=== PATIENT | male | born 1985 | race Caucasian/White ===

== ENCOUNTER 2024-12-19 20:06 | Emergency (ER) | payer BC, SELFPAY ==
--- NOTE | 2024-12-19 20:45 | ED.GENMED ---
History of Present Illness
General
Chief Complaint: Musculo-Skeletal Complaint
Time Seen by Provider: 12/19/24 20:16
History of Present Illness
History of Present Illness:
39-year-old male presents to the emergency department for evaluation of a right ring finger injury. States he went to urgent care and had x-rays showing a PIP dislocation and thus was sent to the ED for evaluation
Review of Systems
Review of Systems
Allergies reviewed?: Yes
All Other Systems: ROS reviewed and negative except as documented in HPI and ROS
Phy Exam
Physical Exam
Physical Exam:
GEN: Well appearing, NAD, WDWN
HEENT: Oral mucosa moist, no scleral icterus
Cardiac: Regular rate
Lung: No respiratory distress, no tachypnea
MSK: Swelling and deformity of the right ring finger PIP joint subjective of dorsal dislocation
Skin: Good color, no pallor or jaundice, no rashes
Neuro: AO x3, moves all extremities freely
Psych: Calm, cooperative
Course
Orders/Labs/Results
Orders:
Orders
12/19/24 20:33
CR Finger(s)/thumb Min 2 Vw Rt Urgent
Comment:
Reason For Exam: R 4th finger post reduction
Vital Signs
Initial and Last Documented VS:
Initial Vital Signs
Temp Pulse Resp Pulse Ox
98.7 F 76 11 99
12/19/24 20:11 12/19/24 20:11 12/19/24 20:11 12/19/24 20:11
Last Documented Vital Signs
Temp Pulse Resp Pulse Ox
98.7 F 76 11 99
12/19/24 20:11 12/19/24 20:11 12/19/24 20:11 12/19/24 20:47
MDM/Problems Addressed
MDM/Problems Addressed:
Dislocation was reduced easily at the bedside with linear traction and placed in elliott taping, subsequent x-rays negative for acute fracture, supportive care discussed
*Pulse Oximetry
SaO2: 99
Oxygen Mode of Delivery: Room air
Patient hypoxic: no
*Critical Care Note
Total Time (30-74mins, 75-104mins- exclusive of procedures): Not Applicable
ED Attending Note
-
Portions of this chart may have been created with voice recognition software.� Occasional wrong word or��sound alike� substitutions may have occurred due to the inherent limitations of voice recognition software.
Discharge Plan
Departure
Patient Disposition: Home (Routine Discharge)
Date of Disposition: 12/19/24
Time of Disposition: 20:46
Patient with high blood pressure during this ER visit?: No
Discharge Problem:
Dislocation of distal interphalangeal joint of right ring finger
Instructions: Finger Dislocation ED
Activity Restrictions/Additional Instructions:
Elliott taping for 3-5 days
Ice often to reduce swelling
Gently flex and extend finger each day to reduce stiffness
Interventions
Interventions:
*General Assessment Last Done: 12/19/24 20:11
*Neglect/Abuse Screening Last Done: 12/19/24 20:11
*ED COVID-19 Vaccine History Last Done: 12/19/24 20:11
*Nursing Disposition Last Done: 12/19/24 20:50
ED-Musculoskeletal Assessment Last Done: 12/19/24 20:37
Discharge Date and Time
Discharge Date/Time: 12/19/24 20:50
Print Language: SWEDISH
== END 2024-12-19 20:50 | disposition home or self-care (01) ==
LOC: EMR 20:06
PROVIDERS: EMERGENCY PHYSICIAN Student in an Organized Health Care Education/Training Program; FAMILY PHYSICIAN Family Medicine
DX: S63.294A Dislocation of distal interphalangeal joint of right ring finger, initial encounter (principal); X58.XXXA Exposure to other specified factors, initial encounter
CPT/HCPCS: 99283; 26770; 73140